=== PATIENT | male | born 1965 | race Hispanic/Latino ===

== ENCOUNTER 2016-12-23 16:59 | Emergency (ER) | payer BC ==
[2016-12-23 17:43] LABS: Basophils % (Auto) 0.2 % (0.0-1.8); Hematocrit 46.7 % (35.5-45.6); Hemoglobin 16.1 gm/dl (11.8-15.2); Mean Corpuscular HGB Conc 34 % (32-34); Mean Corpuscular Hemoglobin 31 pg (28-32); Mean Corpuscular Volume 89 fl (84-94); Platelet Count 201 K/mm3 (140-440); Red Blood Count 5.24 M/mm3 (3.65-5.03); Red Cell Distribution Width 12.2 % (13.2-15.2)
[2016-12-23 17:54] LABS: Anion Gap 18 mmol/L; Blood Urea Nitrogen 14 mg/dL (9-20); Calcium 9.3 mg/dL (8.4-10.2); Carbon Dioxide 23 mmol/L (22-30); Chloride 96.1 mmol/L (98-107); Glucose 196 mg/dL (75-100); Sodium 133 mmol/L (137-145)
[2016-12-23] MEDS ORDERED: ASPIRIN PO ONE (18:20)
[2016-12-23] MEDS ORDERED: MORPHINE IV ONE (18:27)
[2016-12-23] MEDS ORDERED: ZOFRAN IV ONE (18:27)
--- NOTE | 2016-12-23 18:42 | Emergency Department Report ---
ED Chest Pain HPI - General Chief Complaint: Chest Pain Stated Complaint: CHEST PAIN/KRIS Time Seen by Provider: 12/23/16 18:12 Source: patient Mode of arrival: Ambulatory Limitations: No Limitations - History of Present Illness Initial Comments: 51-year-old male presents to ER with complaints of chest pain 2 days. Pain is located over his vision was all gone from sleep because of severe pain. Pain radiates to his left arm and back. Pain is made worse by leaning backwards and sometimes by leaning forward. No known relieving factors. Pain is associated with nausea and diaphoresis, shortness of breath. No vomiting or diarrhea. Pain is located around his substernal and epigastric region. Pain radiates to his back and left upper limb. Patient denies prior episodes of chest pain, has positive family history of coronary artery disease, his grandfather of a heart attack, his father had multiple cardiac surgeries. Patient has history of being a borderline diabetic.. MD Complaint: chest pain -: Gradual, days(s) (2, progressively getting worse) Onset: awoke with symptoms Pain Location: substernal, epigastric Pain Radiation: LUE, back Severity: moderate Quality: sharp, pressure, squeezing Consistency: constant Improves With: nothing Worsens With: exertion, inspiration, supine, palpation, movement re: nausea, diaphoresis, dyspnea. denies: vomting, sense of impending doom Other Symptoms: denies: cough, fever, syncope, rash, acid taste in mouth, leg swelling, palpitations Treatments Prior to Arrival: none Aspirin use within the Past 7 Days: (0) No - Related Data Previous Rx's Medication Instructions Recorded Last Taken Type Aspirin EC [Aspirin Enteric Coated 81 mg PO QDAY #30 tablet. 12/23/16 Unknown Rx TAB] Lisinopril [Zestril TAB] 20 mg PO QDAY #30 tablet 12/23/16 Unknown Rx Ondansetron [Zofran Odt] 4 mg PO Q8HR PRN #20 tab.rapdis 12/23/16 Unknown Rx Sucralfate [Carafate] 1 gm PO Q6HR #120 udc 12/23/16 Unknown Rx Allergies Allergy/AdvReac Type Severity Reaction Status Date / Time Penicillins Allergy Hives Verified 12/23/16 17:20 Heart Score - HEART Score History: Slightly suspicious EKG: Non-specific Age: 45-65 Risk factors: 1-2 risk factors Troponin: < normal limit HEART Score: 3 - Critical Actions Critical Actions: 0-3 pts:0.9-1.7%risk of adverse cardiac event.Candidate for discharge ED Review of Systems ROS: Stated complaint: CHEST PAIN/KRIS Other details as noted in HPI Constitutional: diaphoresis, malaise, weakness. denies: chills, fever Eyes: denies: as per HPI, eye discharge, vision change ENT: denies: ear pain, throat pain, dental pain, hearing loss, epistaxis Respiratory: shortness of breath. denies: cough, orthopnea, SOB with exertion, SOB at rest, wheezing Cardiovascular: chest pain. denies: dyspnea on exertion, edema, syncope, paroxysmal nocturnal dyspnea Endocrine: other (history of borderline diabetes). denies: excessive sweating, intolerance to cold, intolerance to heat, increased hunger, increased thirst, increased urine Gastrointestinal: nausea. denies: constipation, hematemesis, hematochezia Genitourinary: denies: urgency, dysuria, frequency, hematuria, discharge Musculoskeletal: denies: back pain, joint swelling, arthralgia Skin: denies: lesions, change in color, change in hair/nails, pruritus Neurological: weakness. denies: headache, numbness, paresthesias Psychiatric: denies: depression, auditory hallucinations, visual hallucinations ED Past Medical Hx - Past Medical History Hx Diabetes: Yes Additional medical history: Pleurisy - Surgical History Past Surgical History?: No - Medications Home Medications: Home Medications Medication Instructions Recorded Confirmed Last Taken Type Aspirin EC [Aspirin Enteric Coated 81 mg PO QDAY #30 tablet. 12/23/16 Unknown Rx TAB] Lisinopril [Zestril TAB] 20 mg PO QDAY #30 tablet 12/23/16 Unknown Rx Ondansetron [Zofran Odt] 4 mg PO Q8HR PRN #20 tab.rapdis 12/23/16 Unknown Rx Sucralfate [Carafate] 1 gm PO Q6HR #120 udc 12/23/16 Unknown Rx ED Physical Exam - General Limitations: No Limitations General appearance: alert, in no apparent distress, anxious - Head Head exam: Present: atraumatic, normocephalic, normal inspection - Eye Eye exam: Present: normal appearance, EOMI. Absent: conjunctival injection Pupils: Present: normal accommodation - ENT ENT exam: Present: normal exam, normal orophraynx, mucous membranes moist. Absent: normal external ear exam - Neck Neck exam: Present: normal inspection, full ROM. Absent: tenderness, meningismus, lymphadenopathy, thyromegaly - Respiratory Respiratory exam: Present: normal lung sounds bilaterally, chest wall tenderness (reproducible tenderness around his substernal and epigastric regions). Absent: respiratory distress, wheezes, rales, rhonchi - Cardiovascular Cardiovascular Exam: Present: regular rate, normal rhythm, normal heart sounds. Absent: bradycardia, tachycardia, irregular rhythm, diastolic murmur - GI/Abdominal GI/Abdominal exam: Present: soft, tenderness (epigastric and substernal regions) , guarding (epigastric region), normal bowel sounds - Rectal Rectal exam: Present: deferred - Extremities Exam Extremities exam: Present: normal inspection, full ROM, normal capillary refill. Absent: calf tenderness - Back Exam Back exam: Present: normal inspection, full ROM - Neurological Exam Neurological exam: Present: alert, oriented X3, CN II-XII intact - Psychiatric Psychiatric exam: Present: anxious - Skin Skin exam: Present: warm, dry ED Course Vital Signs 12/23/16 17:13 Temperature 98.8 F Pulse Rate 91 H Respiratory 18 Rate Blood Pressure 176/103 O2 Sat by Pulse 100 Oximetry ANTHONY score - Anthony Score Age > 65: (0) No Aspirin use within the Past 7 Days: (0) No 3 or more CAD Risk Factors: (0) No 2 or more Angina events in past 24 hrs: (1) Yes Known CAD with more than 50% Stenosis: (0) No Elevated Cardiac Markers: (0) No ST Deviation Greater than 0.5mm: (0) No ANTHONY Score: 1 ED Medical Decision Making - Lab Data Result diagrams: 12/23/16 17:24 12/23/16 18:35 - EKG Data -: EKG Interpreted by Me - EKG Data 12/23/16 17:05 EKG : normal sinus rhythm rate of 93 beats per minutes, normal axis, incomplete right bundle branch block and normal intervals, no ST elevations. - Radiology Data Radiology results: report reviewed, image reviewed - Medical Decision Making 51-year-old male with family hx of coronary artery disease, patient, pt has borderline diabetes,. Pt has uncontrolled hypertension.Chest pain is reproducible. Troponins are negative x 2, Pt feels much better in ED, Pt is being discharged to f/u with his PCP to schedule him for a stress test in next 72 hours. Pt is being started on aspirin and lisinopril. Pt advised to return back to ED if his problem gets worse. Pt advised to restrict his salt intake, advised to loss weight Critical Care Time: No Critical care attestation.: If time is entered above; I have spent that time in minutes in the direct care of this critically ill patient, excluding procedure time. ED Disposition Clinical Impression: Atypical chest pain, Gastritis, Uncontrolled hypertension Disposition: TO HOME OR SELFCARE Is pt being admited?: No Does the pt Need Aspirin: Yes Condition: Stable Instructions: Chest Pain (ED), Hypertension (ED), Gastritis (ED) Additional Instructions: Less salt in your diet, loss some weight. Follow up with your PCP to schedule you for a stress test within next 72 hours Prescriptions: Aspirin EC [Aspirin Enteric Coated TAB] 81 mg PO QDAY #30 tablet. Lisinopril [Zestril TAB] 20 mg PO QDAY #30 tablet Ondansetron [Zofran Odt] 4 mg PO Q8HR PRN #20 tab.rapdis PRN Reason: Nausea Sucralfate [Carafate] 1 gm PO Q6HR #120 udc Referrals: PRIMARY CARE, [Primary Care Provider] - 3-5 Days Time of Disposition: 19:52
--- NOTE | 2016-12-23 18:56 | XRay Report ---
FINAL REPORT EXAM: XR CHEST 1V AP HISTORY: Chest Pain TECHNIQUE: AP portable view of the chest. PRIORS: None. FINDINGS: The cardiomediastinal silhouette appears normal. The lungs are clear. The bones and soft tissues are unremarkable. IMPRESSION: No evidence of acute cardiopulmonary disease.
[2016-12-23 19:09] LABS: Alanine Aminotransferase 29 units/L (7-56); Albumin 4.4 g/dL (3.9-5); Albumin/Globulin Ratio 1.4 %; Alkaline Phosphatase 77 units/L (35-129); Anion Gap 18 mmol/L; Blood Urea Nitrogen 14 mg/dL (9-20); Calcium 9.2 mg/dL (8.4-10.2); Carbon Dioxide 25 mmol/L (22-30); Chloride 96.1 mmol/L (98-107); Glucose 194 mg/dL (75-100); Lipase 28 units/L (13-60); Potassium 4.3 mmol/L (3.6-5.0); Sodium 135 mmol/L (137-145); Total Protein 7.5 g/dL (6.3-8.2)
[2016-12-23 19:12] LABS: INR 1.04 (0.87-1.13)
[2016-12-23] MEDS ORDERED: ZESTRIL PO ONE (19:23)
[2016-12-23 20:00] VITALS: BP 161/92
== END 2016-12-24 00:30 | disposition home or self-care (01) ==
LOC: ED 16:59
DX: K29.70 Gastritis, unspecified, without bleeding (principal); I10 Essential (primary) hypertension; E11.9 Type 2 diabetes mellitus without complications; Z88.0 Allergy status to penicillin
CPT/HCPCS: 36415; 71010; 80048; 80053; 83690; 83735; 84484; 85025; 85379; 85610; 93005; 93010; 96374; 96375; 99285; J2270; J2405